=== PATIENT | female | born 1965 | race Caucasian/White ===

== ENCOUNTER 2022-12-06 05:05 | Day surgery (SDC) | payer OTHER ==
[~2022-12-06] VITALS: Ht 162.6 cm; Wt 72.6 kg
[~2022-12-06 05:05] MED LIST: AMBIEN5 MG PO; ATORVASTATIN CA40 MG PO; B-COMPLEX1 EACH PO; PANADOL EXTRA500 MG PO
[2022-12-06] MEDS ORDERED: CILOXAN5 ML OTIC (13:35)
[2022-12-06] MEDS ORDERED: LEVOFLOXACIN500 MG PO (13:38)
== END 2022-12-06 17:25 | disposition home or self-care (01) ==
LOC: CIR.AMB 05:05
PROVIDERS: ATTEND Otolaryngology Otology & Neurotology
DX: H70.12 Chronic mastoiditis, left ear (principal); Q01.8 Encephalocele of other sites; E78.5 Hyperlipidemia, unspecified